=== PATIENT | male | born 1990 | race Caucasian/White ===

== ENCOUNTER 2019-08-09 17:47 | Emergency (ER) | payer BC ==
[~2019-08-09] VITALS: Ht 180.3 cm; Wt 89.8 kg
--- NOTE | 2019-08-09 18:15 | NUR ---
PT HAS CO SINUS DRAINAGE X 2M. RECENTLY DEVELOPED PERSISTENT COUGH, NIGHT SWEATS, WEIGHT LOSS. PT HAS HAD STEROIDS RECENTLY. SAW PCP TODAY AND WAS TOLD TO COME TO ER FOR FLU TEST. PAPR CART AVAILABLE, PT IN NEG AIR PRESSUR ROOM. PT NOT IN RESP DISTRESS.
--- NOTE | 2019-08-09 18:31 | NUR ---
MD AT BEDSIDE. PAPR CART BY ROOM. POC TO ORDER CXR, LABS AND FLU SWAB
--- NOTE | 2019-08-09 18:49 | NUR ---
CXR AT BEDSIDE.
--- NOTE | 2019-08-09 19:03 | NUR ---
LABS AT BEDSIDE.
[2019-08-09 19:07] LABS: MEAN CORPUSCULAR HEMOGLOBIN 28.9 pg (27.5-34.5); MEAN CORPUSCULAR HGB CONC 33.7 g/dL (33.2-36.2); MEAN CORPUSCULAR VOLUME 85.6 fL (81-97); MEAN PLATELET VOLUME 8.2 fL (7.4-10.4); PLATELET COUNT 212 x10^3/uL (130-400); RED BLOOD COUNT 4.16 x10^6/uL (4.38-5.82); RED CELL DISTRIBUTION WIDTH 14.5 % (9.4-14.8)
[2019-08-09 19:17] LABS: ALANINE AMINOTRANSFERASE 27 U/L (12-78); ALBUMIN 3.5 g/dL (3.4-5.0); ANION GAP 7 mmol/L (5-15); CALCIUM 8.3 mg/dL (8.5-10.1); CHLORIDE 103 mmol/L (98-107)
[2019-08-09 19:28] LABS: ALKALINE PHOSPHATASE 84 U/L (45-117); BILIRUBIN,TOTAL 0.3 mg/dL (0.2-1.0); FREE T4 (FREE THYROXINE) 1.04 ng/dL (0.76-1.46); TOTAL PROTEIN 8.7 g/dL (6.4-8.2)
[2019-08-09 19:42] LABS: BASOPHILS # (AUTO) 0.01 x10^3/uL (0-0.1); BASOPHILS % (AUTO) 0 % (0-1); EOSINOPHILS % (AUTO) 11 % (1-7); LYMPHOCYTES # (AUTO) 0.46 x10^3/uL (1-3.4); LYMPHOCYTES % (AUTO) 16 % (22-44); MD SCAN; MONOCYTES # (AUTO) 0.29 x10^3/uL (0.2-0.8); MONOCYTES % (AUTO) 10 % (2-9); NEUTROPHILS # (AUTO) 1.84 x10^3/uL (1.8-6.8); NEUTROPHILS % (AUTO) 64 % (42-75)
[2019-08-09 20:17] LABS: RAPID INFLUENZA A Negative (Negative); RAPID INFLUENZA B Negative (Negative)
--- NOTE | 2019-08-09 20:32 | NUR ---
OK FOR NO ISOLATION NEEDED. PT RESTING, NO NEEDS A THIS TIME
--- NOTE | 2019-08-09 20:33 | NUR ---
LAB AT BEDSIDE FOR REDRAW OF HIV PANEL, FIRST DRAW WAS POSITIVE
--- NOTE | 2019-08-09 20:54 | NUR ---
REPORT TO JOEY
--- NOTE | 2019-08-09 21:07 | NUR ---
Received report from IVORY Mckenzie. This RN to assume care. Patient resting in [facility] with no complaints at this time.
[2019-08-09 21:14] VITALS: BP 131/75
[2019-08-09] MEDS ORDERED: SULFAMETH./TRIMETHOPRIM DS 800MG/160MG TABLET ONE (21:39)
--- NOTE | 2019-08-09 21:44 | NUR ---
Medications admin per mar. Discharge instructions given. All questions and concerns addressed. Patient ambulatory with a steady gait. Belongings with patient.
[2019-08-09] MEDS ORDERED: SULFAMETH./TRIMETHOPRIM DS 800MG/160MG TABLET PO ONE (22:00)
== END 2019-08-09 21:46 | disposition home or self-care (01) ==
LOC: ED 21:10
DX: J98.4 Other disorders of lung (principal); R63.4 Abnormal weight loss; R09.81 Nasal congestion; Z21 Asymptomatic human immunodeficiency virus [HIV] infection status
CPT/HCPCS: 36415; 71045; 80053; 84439; 84443; 85025; 86480; 86701; 86702; 87400; 87535; 87806; 99284; G0475

== ENCOUNTER 2019-08-27 05:11 | Inpatient (IN) | payer BC ==
[~2019-08-27] VITALS: Ht 180.3 cm; Wt 85.8 kg
--- NOTE | 2019-08-27 05:47 | NUR ---
Pt presents to room stating he woke up at 0300 today with slurred speech, facial droop, and right arm/hand weakness. Pt has full strength to right arm during assessment but has slow fine motor skill compared to the left hand. Pt has right side facial droop and slurred speech in the room.
[2019-08-27 05:55] LABS: BASOPHILS # (AUTO) 0.01 x10^3/uL (0-0.1); MD NO; MONOCYTES # (AUTO) 0.32 x10^3/uL (0.2-0.8); NEUTROPHILS % (AUTO) 64 % (42-75)
[2019-08-27] MEDS ORDERED: SODIUM CHLORIDE FLUSH 10ML SYR IVF ONE (06:00)
[2019-08-27 06:05] LABS: BASOPHILS % (AUTO) 0 % (0-1); EOSINOPHILS % (AUTO) 11 % (1-7); LYMPHOCYTES # (AUTO) 0.61 x10^3/uL (1-3.4); LYMPHOCYTES % (AUTO) 17 % (22-44); MEAN CORPUSCULAR HEMOGLOBIN 28.8 pg (27.5-34.5); MEAN CORPUSCULAR HGB CONC 33.7 g/dL (33.2-36.2); MEAN CORPUSCULAR VOLUME 85.4 fL (81-97); MEAN PLATELET VOLUME 9.9 fL (7.4-10.4); MONOCYTES % (AUTO) 9 % (2-9); NEUTROPHILS # (AUTO) 2.35 x10^3/uL (1.8-6.8); PLATELET COUNT 128 x10^3/uL (130-400); RED BLOOD COUNT 4.34 x10^6/uL (4.38-5.82); RED CELL DISTRIBUTION WIDTH 14.6 % (9.4-14.8)
[2019-08-27 06:20] LABS: ALANINE AMINOTRANSFERASE 37 U/L (12-78); ALBUMIN 3.5 g/dL (3.4-5.0); ANION GAP 10 mmol/L (5-15); CALCIUM 8.9 mg/dL (8.5-10.1); CHLORIDE 106 mmol/L (98-107)
[2019-08-27 06:22] LABS: ALKALINE PHOSPHATASE 62 U/L (45-117); BILIRUBIN,TOTAL 0.6 mg/dL (0.2-1.0); TOTAL PROTEIN 8.6 g/dL (6.4-8.2)
--- NOTE | 2019-08-27 06:51 | NUR ---
PT RESTING IN [facility], CALL LIGHT WITHIN REACH. FRIEND AT BEDSIDE. AWAITING MRI
--- NOTE | 2019-08-27 06:56 | NUR ---
PT TO MRI
[2019-08-27] MEDS ORDERED: GADOTERATE 10 MMOL/20 ML SYR ONE (07:39)
--- NOTE | 2019-08-27 08:12 | NUR ---
CONTACTING NEUROLOGY TOWEL ROLLING MACHINE OPERATOR
--- NOTE | 2019-08-27 08:48 | NUR ---
REPORT RECEIVED FROM IVORY ENGLISH. ASSUMED CARE OF PT.
[2019-08-27] MEDS ORDERED: SODIUM CHLORIDE FLUSH 10ML SYR IVF PRN (09:00)
--- NOTE | 2019-08-27 09:07 | NUR ---
THIS IS A 29 YO MALE WITH RIGHT SIDED FACIAL DROOP AND RIGHT UPPER ARM WEAKNESS. 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 EQUAL STRENGTH FOR BILAT LOWER EXTREMITIES. SENSATION INTACT IN ALL 4 EXTREMITIES. PT DENEIS ANY STEVENS OR VISION CHANGES. PT HAS SLIGHT THICKENING OF SPEECH BUT PER PARTNER AND PT, PT IS HAVING NO DIFFICULTY WITH THINKING OF WORDS OR MEMORY. PT AND PARTNER AWARE WE ARE WAITING FOR NEURO CONSULT. PT ON CONT BP, CARDIAC AND O2 MONITORS. CALL LIGHT WITHIN REACH. WILL CONT TO MONITOR PT.
[2019-08-27] MEDS ORDERED: ASPIRIN 81 MG TABLET CHEW ONE (09:15)
[2019-08-27] MEDS ORDERED: ASPIRIN 81 MG TABLET CHEW PO ONE (09:30)
--- NOTE | 2019-08-27 09:32 | NUR ---
REPORT TO IVORY DE LA ROSA AND SAW Instrument. Addendum: 08/27/19 at 0936 by MINESH REPORT TO IVORY GRANADOS AND SAW [employer].
[2019-08-27] MEDS ORDERED: BICT1TAB PO (09:38)
[2019-08-27 10:00] VITALS: BP 115/77
[2019-08-27] MEDS ORDERED: DOCUSATE 100 MG CAPSULE PO PRN (12:00)
[2019-08-27] MEDS ORDERED: ONDANSETRON ODT 4 MG PO PRN (12:00)
[2019-08-27] MEDS ORDERED: ONDANSETRON 2MG/ML, 2ML IVPush PRN (12:00)
[2019-08-27] MEDS ORDERED: POLYETHYLENE GLYCOL 17 GM PACKET PO PRN (12:00)
[2019-08-27] MEDS ORDERED: ACETAMINOPHEN 325 MG TABLET PO PRN (12:00)
[2019-08-27] MEDS ORDERED: ENALAPRILAT 1.25 MG/ML, 2ML IV PRN (12:00)
[2019-08-27] MEDS ORDERED: BISACODYL 10 MG SUPP PR PRN (12:00)
[2019-08-27] MEDS: ENOXAPARIN 40 MG/0.4 ML SQ SCH (12:20)
[2019-08-27 13:07] LABS: HCT (SEDRATE) 35.6 % (39.2-51.8)
[2019-08-27 14:00] VITALS: BP 129/82
[2019-08-27 18:54] VITALS: BP 130/81
[2019-08-27] MEDS ORDERED: ATORVASTATIN 40 MG TABLET PO SCH (21:00)
[2019-08-27] MEDS: DAPSONE 25 MG TABLET PO SCH (21:21)
[2019-08-28 00:49] VITALS: BP 124/76
[2019-08-28 01:20] VITALS: BP 120/77
[2019-08-28 06:23] LABS: BASOPHILS # (AUTO) 0.01 x10^3/uL (0-0.1); BASOPHILS % (AUTO) 0 % (0-1); EOSINOPHILS # (AUTO) 0.32 x10^3/uL (0-0.4); EOSINOPHILS % (AUTO) 10 % (1-7); LYMPHOCYTES # (AUTO) 0.53 x10^3/uL (1-3.4); LYMPHOCYTES % (AUTO) 17 % (22-44); MD NO; MEAN CORPUSCULAR HEMOGLOBIN 28.8 pg (27.5-34.5); MEAN CORPUSCULAR HGB CONC 33.8 g/dL (33.2-36.2); MEAN CORPUSCULAR VOLUME 85.4 fL (81-97); MEAN PLATELET VOLUME 9.3 fL (7.4-10.4); MONOCYTES # (AUTO) 0.36 x10^3/uL (0.2-0.8); MONOCYTES % (AUTO) 11 % (2-9); NEUTROPHILS # (AUTO) 1.93 x10^3/uL (1.8-6.8); NEUTROPHILS % (AUTO) 61 % (42-75); PLATELET COUNT 148 x10^3/uL (130-400); RED BLOOD COUNT 4.15 x10^6/uL (4.38-5.82); RED CELL DISTRIBUTION WIDTH 14.9 % (9.4-14.8)
[2019-08-28 06:29] LABS: ANION GAP 5 mmol/L (5-15); CALCIUM 8.8 mg/dL (8.5-10.1); CHLORIDE 109 mmol/L (98-107); CHOLESTEROL, TOTAL 94 mg/dL (140-239); CREATININE 0.86 mg/dL (0.7-1.3); TRIGLYCERIDES 150 mg/dL (50-200); VLDL CHOLESTEROL 30 mg/dL (0-25)
[2019-08-28 06:32] LABS: CHOL/HDL RATIO 4.5; HDL CHOL % 22 % (26-37); HDL CHOLESTEROL (DIRECT) 21 mg/dL (40-60); LDL CHOLESTEROL,CALCULATED 43 mg/dL (54-169)
[2019-08-28 06:33] VITALS: BP 118/73
[2019-08-28] MEDS: DAPSONE 25 MG TABLET PO SCH (08:05)
[2019-08-28] MEDS ORDERED: ASPIRIN 81 MG TABLET CHEW PO/NG SCH (09:00)
[2019-08-28] MEDS ORDERED: BICTEGRAV/EMTRICIT/TENOFOV ALA TAB PO SCH (09:00)
--- NOTE | 2019-08-28 10:26 | NUR ---
REC HOME Addendum: 08/28/19 at [address] Amended: Links added.
[2019-08-28] MEDS ORDERED: CLOP75TA PO (11:26)
[2019-08-28] MEDS ORDERED: DAPS25TA PO (11:26)
[2019-08-28] MEDS ORDERED: ATOR40TA78 PO (11:26)
[2019-08-28] MEDS ORDERED: ASPI-515 PO (11:26)
[2019-08-28] MEDS: ENOXAPARIN 40 MG/0.4 ML SQ SCH (12:00)
== END 2019-08-28 13:00 | disposition home or self-care (01) | DRG 66 ==
LOC: ED 06:29 → EDIP 08:48 → 4WST 09:55
PROVIDERS: ADMIT Internal Medicine; ATTEND Internal Medicine
DX: I63.9 Cerebral infarction, unspecified (principal); G83.21 Monoplegia of upper limb affecting right dominant side; I10 Essential (primary) hypertension; R29.810 Facial weakness; R47.1 Dysarthria and anarthria
CPT/HCPCS: 36415; 70450; 70553; 72156; 80048; 80053; 80061; 81240; 85025; 85300; 85301; 85303; 85306; 85598; 85610; 85613; 85651; 85670; 85730; 85732; 86140; 86146; 86147; 86361; 87536; 93005; 93306; 93356; 93880; 99285; G0378; J1650; A9575

== ENCOUNTER 2019-12-07 12:11 | Outpatient (CLI) | payer BC ==
[~2019-12-07 12:11] MED LIST: ASPI-515 PO; ATOR40TA78 PO; BICT1TAB PO; CLOP75TA PO; DAPS25TA PO
[2019-12-07] MEDS ORDERED: OMNIPAQUE 350 MG/ML, 100ML BOTTLE ONE (15:03)
== END 2019-12-07 23:59 | disposition home or self-care (01) ==
LOC: CFH 12:11
PROVIDERS: ATTEND Nurse Practitioner Family
DX: I63.9 Cerebral infarction, unspecified (principal)
CPT/HCPCS: 70496; 70498; Q9967